=== PATIENT | male | born 1945 | race Caucasian/White ===

== ENCOUNTER → 2016-08-29 | Outpatient (CLI) | payer BC ==
[~2016-08-29] MED LIST: ADVIN25/60 INH; ALL100 PO; EZET10TA63 PO; HYDR25TA5; POTA1080 PO; POTA10CA28 PO; SILD100T PO; SIMV20TA2 PO; TAMS0.4C59 PO
--- NOTE | 2016-08-29 16:39 | DIAGNOSTIC IMAGING REPORT ---
CERVICAL SPINE 7 VIEWS HISTORY: CHRONIC NECK PAIN COMPARISON: None. FINDINGS: The cervical spine is visualized from C1 through the superior endplate of T1. There is no fracture. No subluxation. Disc spaces are preserved. Prevertebral soft tissues and the atlantodens interval are intact. IMPRESSION: No fracture or subluxation within the cervical spine. Electronically signed by: Mario Flores M.D. 08/29/2016 4:37 PM Dictated Date/Time: 08/29/2016 4:36 PM
== END | disposition home or self-care (01) ==
LOC: C.RAD1850 16:10
PROVIDERS: ATTEND Family Medicine
DX: M54.2 Cervicalgia (principal)

== ENCOUNTER → 2016-09-11 | Outpatient (CLI) | payer BC ==
--- NOTE | 2016-09-11 15:30 | DIAGNOSTIC IMAGING REPORT ---
CT OF THE HEAD WITHOUT CONTRAST CLINICAL HISTORY: Headache. COMPARISON STUDY: No previous studies for comparison. CT DOSE: 712.55 mGy.cm TECHNIQUE: Helical axial images of the head were obtained without IV contrast. Automated exposure control was utilized for the study. FINDINGS: No acute intracranial hemorrhage, midline shift or mass effect is present. Ventricular system is unremarkable for age. The basilar cisterns are patent. There are no extra-axial collections. There are no findings to suggest acute dural sinus thrombosis or acute territorial infarct. Visualized portions of the sinuses and mastoid air cells are clear. There are no significant calvarial abnormalities. IMPRESSION: No acute intracranial findings. Electronically signed by: Wade Ramires M.D. 09/11/2016 3:28 PM Dictated Date/Time: 09/11/2016 3:11 PM
== END | disposition home or self-care (01) ==
LOC: C.CTS 14:39
PROVIDERS: ATTEND Family Medicine
DX: R51 Headache (principal); M54.2 Cervicalgia